=== PATIENT | female | born 1940 | race Asian ===

== ENCOUNTER 2020-06-23 17:18 | Inpatient (IN) | payer OTHER, MEDICAID, SELFPAY ==
[~2020-06-23] VITALS: Ht 165.1 cm; Wt 63.5 kg
[2020-06-23 17:19] VITALS: BP_SYST 134
[2020-06-23 18:32] LABS: BASOPHILS % (AUTO) 0.6 % (0.0-2.0); EOSINOPHILS % (AUTO) 0.6 % (0.0-4.0); HEMATOCRIT 22.9 % (36-48); HEMOGLOBIN 7.6 g/dL (12.0-16.0); LYMPHOCYTES # (AUTO) 0.6 K/uL (1.0-5.5); LYMPHOCYTES % (AUTO) 19.5 % (20.5-51.5); MEAN CORPUSCULAR HEMOGLOBIN 31 pg (27-31); MEAN CORPUSCULAR HGB CONC 33 % (32-36); MEAN CORPUSCULAR VOLUME 95 fL (79.0-98.0); MONOCYTES # (AUTO) 0.1 K/uL (0.0-1.0); MONOCYTES % (AUTO) 4.7 % (1.7-9.3); NEUTROPHILS # (AUTO) 2.3 K/uL (1.8-7.7); NEUTROPHILS % (AUTO) 74.6 % (40.0-70.0); PLATELET COUNT (AUTO) 117 K/uL (130-430); RED BLOOD CELL COUNT(AUTO) 2.41 MIL/uL (4.2-6.2); RED CELL DISTRIBUTION WIDTH 18.8 % (9.0-15.0); WHITE BLOOD COUNT (AUTO) 3.1 K/uL (4.8-10.8)
[2020-06-23 18:53] LABS: INR 0.9 (0.8-1.2); PROTHROMBIN TIME 9.4 SECS (9.5-12.5)
[2020-06-23 19:03] LABS: ANION GAP 5 (5-15); CALCIUM 7.8 mg/dL (8.4-11.0); CHLORIDE 115 mmol/L (98-107); CREATININE 0.39 mg/dL (0.55-1.30); SODIUM SERUM 154 mmol/L (136-145); UREA NITROGEN, BLOOD 19 mg/dL (8-21)
[2020-06-23 19:08] LABS: ALANINE AMINOTRANSFERASE 38 U/L (12-78); ALBUMIN 2.3 g/dL (3.4-4.8); ASPARTATE AMINOTRANSFERASE 41 U/L (10-37); TOTAL BILIRUBIN 0.8 mg/dL (0.0-1.0)
[2020-06-23 19:12] LABS: POTASSIUM 2.5 mmol/L (3.5-5.1)
[2020-06-23 19:15] LABS: GLUCOSE 161 mg/dL (70-99)
[2020-06-23] MEDS ORDERED: KCL 40 mEq in 100 mL (PREMIX) 100 ML IV ONE (19:30)
[2020-06-23] MEDS ORDERED: KCL 20 mEq in 100 mL (PREMIX) 100 ML IV ONE (19:30)
[2020-06-23 22:25] VITALS: BP_SYST 101
[2020-06-23] MEDS: D5/0.45 NS 1,000 ML IV SCH (23:30)
[2020-06-24 02:39] LABS: BILIRUBIN,URINE NEGATIVE (NEGATIVE); BLOOD, URINE 3+ (NEGATIVE); CLARITY/URINE CLOUDY (CLEAR); COLOR,URINE YELLOW (YELLOW); GLUCOSE,URINE NEGATIVE (NEGATIVE); KETONES,URINE NEGATIVE (NEGATIVE); LEUKOCYTE ESTERASE ,URINE 1+ (NEGATIVE); NITRITE, URINE NEGATIVE (NEGATIVE); PH,URINE 6.5 (5.0-8.0); PROTEIN URINE 2+ (NEGATIVE)
[2020-06-24 03:19] LABS: BACTERIA,URINE MODERATE /HPF (None Seen); RBC,URINE 20-50 /HPF (0-3)
[2020-06-24] MEDS ORDERED: ONDA4TAB5 PEG (07:07)
[2020-06-24] MEDS ORDERED: DOCU-144 PEG (07:07)
[2020-06-24] MEDS ORDERED: CHOL4PAC20 PEG (07:07)
[2020-06-24] MEDS ORDERED: LACT10SO6 PEG (07:07)
[2020-06-24] MEDS ORDERED: SSREG SUBCUT (07:07)
[2020-06-24] MEDS ORDERED: CAT.1 PEG (07:07)
[2020-06-24] MEDS ORDERED: LOVI30 SQ (07:07)
[2020-06-24] MEDS ORDERED: ASCO500T20 PEG (07:07)
[2020-06-24] MEDS ORDERED: LEVE250T2 PEG (07:07)
[2020-06-24] MEDS ORDERED: ALBU2.5V7 INH (07:07)
[2020-06-24] MEDS ORDERED: TYLL650 PEG (07:07)
[2020-06-24] MEDS ORDERED: GLU500 PEG (07:07)
[2020-06-24 07:13] LABS: ANION GAP 6 (5-15); CALCIUM 8.1 mg/dL (8.4-11.0); CHLORIDE 118 mmol/L (98-107); CREATININE 0.38 mg/dL (0.55-1.30); GLUCOSE 163 mg/dL (70-99); POTASSIUM 3.2 mmol/L (3.5-5.1); SODIUM SERUM 154 mmol/L (136-145); UREA NITROGEN, BLOOD 20 mg/dL (8-21)
[2020-06-24 07:19] LABS: ALANINE AMINOTRANSFERASE 33 U/L (12-78); ALBUMIN 2.1 g/dL (3.4-4.8); ASPARTATE AMINOTRANSFERASE 36 U/L (10-37); TOTAL BILIRUBIN 0.8 mg/dL (0.0-1.0)
[2020-06-24 07:29] LABS: BASOPHILS % (AUTO) 1.4 % (0.0-2.0); EOSINOPHILS % (AUTO) 0.9 % (0.0-4.0); HEMATOCRIT 22.1 % (36-48); HEMOGLOBIN 7.1 g/dL (12.0-16.0); LYMPHOCYTES # (AUTO) 0.4 K/uL (1.0-5.5); LYMPHOCYTES % (AUTO) 18.5 % (20.5-51.5); MEAN CORPUSCULAR HEMOGLOBIN 31 pg (27-31); MEAN CORPUSCULAR HGB CONC 32 % (32-36); MEAN CORPUSCULAR VOLUME 97 fL (79.0-98.0); MONOCYTES # (AUTO) 0.1 K/uL (0.0-1.0); MONOCYTES % (AUTO) 4.7 % (1.7-9.3); NEUTROPHILS # (AUTO) 1.7 K/uL (1.8-7.7); NEUTROPHILS % (AUTO) 74.5 % (40.0-70.0); PLATELET COUNT (AUTO) 104 K/uL (130-430); RED BLOOD CELL COUNT(AUTO) 2.27 MIL/uL (4.2-6.2); RED CELL DISTRIBUTION WIDTH 19.6 % (9.0-15.0); WHITE BLOOD COUNT (AUTO) 2.3 K/uL (4.8-10.8)
[2020-06-24 08:00] VITALS: BP_SYST 123
[2020-06-24] MEDS ORDERED: ALBUTEROL SULFATE 0.083% 2.5 MG/3 ML VIAL.NEB INH PRN (08:30)
[2020-06-24] MEDS ORDERED: cloNIDine HCL 0.1 MG TABLET GT SCH (08:30)
[2020-06-24] MEDS ORDERED: INSULIN REGULAR, HUMAN 100 UNITS/ML, 10 ML VIAL (humuLIN R) SUBCUT PRN ×2 (08:30→10:00)
[2020-06-24] MEDS ORDERED: ONDANSETRON 4 MG ODT TAB GT PRN (08:30)
[2020-06-24] MEDS ORDERED: cloNIDine HCL 0.1 MG TABLET PO PRN (08:45)
[2020-06-24 09:17] LABS: TOTAL IRON BIND. CAPACITY 231 ug/dL (250-450)
[2020-06-24] MEDS ORDERED: POTASSIUM CHLORIDE 20 MEQ/PKT PACKET PO ONE (09:45)
[2020-06-24] MEDS ORDERED: D5W 1,000 ML IV PRN (10:15)
[2020-06-24] MEDS ORDERED: DEXTROSE 50%-WATER 50 ML DISP.SYRIN IVP PRN (10:15)
[2020-06-24] MEDS ORDERED: GLUCOSE (DEXTROSE) ORAL GEL -Adults PO PRN (10:15)
[2020-06-24] MEDS: PANTOPRAZOLE SODIUM 40 MG/VIAL (PROTONIX) IVP SCH (10:25)
[2020-06-24] MEDS: DOCUSATE SODIUM 100 MG CAPSULE PO SCH ×2 (10:25→22:08)
[2020-06-24] MEDS: levETIRAcetam 500 MG TABLET GT SCH ×2 (10:25→22:08)
[2020-06-24] MEDS: ASCORBIC ACID 500 MG TABLET GT SCH ×2 (10:25→22:08)
[2020-06-24] MEDS: ENOXAPARIN SODIUM 30 MG/0.3 ML SYRINGE SQ SCH ×3 (10:26→22:09)
[2020-06-24] MEDS: CHOLESTYRAMINE/SUCROSE 4 GM/PACKET GT SCH ×3 (12:05→23:58)
[2020-06-24 12:49] VITALS: BP_SYST 107
[2020-06-24 13:09] VITALS: BP_SYST 107
[2020-06-24] MEDS: D5/0.45 NS 1,000 ML IV SCH ×2 (15:30→18:59)
[2020-06-24 16:40] VITALS: BP_SYST 109
[2020-06-24] MEDS: metFORMIN HCL 500 MG TABLET GT SCH (18:13)
[2020-06-24 20:00] VITALS: BP_SYST 102
[2020-06-25] MEDS: CHOLESTYRAMINE/SUCROSE 4 GM/PACKET GT SCH ×3 (05:56→17:22)
[2020-06-25 08:00] VITALS: BP_SYST 121
[2020-06-25] MEDS: metFORMIN HCL 500 MG TABLET GT SCH ×2 (08:00→17:22)
[2020-06-25 08:08] LABS: ANION GAP 9 (5-15); CALCIUM 8.1 mg/dL (8.4-11.0); CHLORIDE 118 mmol/L (98-107); CREATININE 0.31 mg/dL (0.55-1.30); GLUCOSE 122 mg/dL (70-99); POTASSIUM 3.6 mmol/L (3.5-5.1); SODIUM SERUM 154 mmol/L (136-145); UREA NITROGEN, BLOOD 16 mg/dL (8-21)
[2020-06-25] MEDS: ENOXAPARIN SODIUM 30 MG/0.3 ML SYRINGE SQ SCH ×2 (09:00→21:00)
[2020-06-25] MEDS: levETIRAcetam 500 MG TABLET GT SCH ×2 (09:52→22:06)
[2020-06-25] MEDS: DOCUSATE SODIUM 100 MG CAPSULE PO SCH ×2 (09:52→22:06)
[2020-06-25] MEDS: ASCORBIC ACID 500 MG TABLET GT SCH ×2 (09:52→22:06)
[2020-06-25] MEDS: PANTOPRAZOLE SODIUM 40 MG/VIAL (PROTONIX) IVP SCH (09:53)
[2020-06-25 09:54] LABS: MONOCYTES # (AUTO) 0.1 K/uL (0.0-1.0)
[2020-06-25] MEDS: levoFLOXacin 250 MG TABLET PO SCH (10:00)
[2020-06-25 10:06] LABS: BASOPHILS % (AUTO) 0.7 % (0.0-2.0); EOSINOPHILS # (AUTO) 0.1 K/uL (0.0-0.4); EOSINOPHILS % (AUTO) 1.9 % (0.0-4.0); HEMATOCRIT 26.6 % (36-48); HEMOGLOBIN 8.1 g/dL (12.0-16.0); LYMPHOCYTES # (AUTO) 0.7 K/uL (1.0-5.5); LYMPHOCYTES % (AUTO) 22.2 % (20.5-51.5); MEAN CORPUSCULAR HEMOGLOBIN 29 pg (27-31); MEAN CORPUSCULAR HGB CONC 30 % (32-36); MEAN CORPUSCULAR VOLUME 94 fL (79.0-98.0); MONOCYTES % (AUTO) 4.9 % (1.7-9.3); NEUTROPHILS # (AUTO) 2.1 K/uL (1.8-7.7); NEUTROPHILS % (AUTO) 70.3 % (40.0-70.0); PLATELET COUNT (AUTO) 92 K/uL (130-430); RED BLOOD CELL COUNT(AUTO) 2.84 MIL/uL (4.2-6.2); RED CELL DISTRIBUTION WIDTH 18.6 % (9.0-15.0)
[2020-06-25] MEDS ORDERED: MENTHOL/ZINC OXIDE 113 GM OINT. TP PRN (11:00)
[2020-06-25] MEDS: BALSAM PERU/CASTOR OIL 60 GM OINT...G. TP SCH (11:07)
[2020-06-25 12:35] VITALS: BP_SYST 100
[2020-06-25 17:00] VITALS: BP_SYST 93
[2020-06-25 20:00] VITALS: BP_SYST 106
[2020-06-25] MEDS: EMOLLIENT COMBINATION NO.73 78 GM CREAM..G. TP SCH (22:07)
[2020-06-26] MEDS: CHOLESTYRAMINE/SUCROSE 4 GM/PACKET GT SCH ×4 (00:59→17:30)
[2020-06-26 01:11] VITALS: BP_SYST 103
[2020-06-26] MEDS: D5/0.45 NS 1,000 ML IV SCH (07:30)
[2020-06-26 07:43] LABS: BASOPHILS % (AUTO) 0.5 % (0.0-2.0); EOSINOPHILS % (AUTO) 1.7 % (0.0-4.0); HEMATOCRIT 25.8 % (36-48); HEMOGLOBIN 8.5 g/dL (12.0-16.0); LYMPHOCYTES # (AUTO) 0.4 K/uL (1.0-5.5); LYMPHOCYTES % (AUTO) 16.9 % (20.5-51.5); MEAN CORPUSCULAR HEMOGLOBIN 31 pg (27-31); MEAN CORPUSCULAR HGB CONC 33 % (32-36); MEAN CORPUSCULAR VOLUME 95 fL (79.0-98.0); MONOCYTES # (AUTO) 0.1 K/uL (0.0-1.0); MONOCYTES % (AUTO) 4.2 % (1.7-9.3); NEUTROPHILS % (AUTO) 76.7 % (40.0-70.0); PLATELET COUNT (AUTO) 76 K/uL (130-430); RED BLOOD CELL COUNT(AUTO) 2.71 MIL/uL (4.2-6.2); RED CELL DISTRIBUTION WIDTH 18.9 % (9.0-15.0); WHITE BLOOD COUNT (AUTO) 2.6 K/uL (4.8-10.8)
[2020-06-26 08:00] VITALS: BP_SYST 117
[2020-06-26] MEDS: metFORMIN HCL 500 MG TABLET GT SCH ×2 (08:00→17:30)
[2020-06-26] MEDS: DOCUSATE SODIUM 100 MG CAPSULE PO SCH ×2 (10:14→21:00)
[2020-06-26] MEDS: EMOLLIENT COMBINATION NO.73 78 GM CREAM..G. TP SCH ×2 (10:14→21:52)
[2020-06-26] MEDS: levETIRAcetam 500 MG TABLET GT SCH ×2 (10:14→21:51)
[2020-06-26] MEDS: ASCORBIC ACID 500 MG TABLET GT SCH ×2 (10:14→21:51)
[2020-06-26] MEDS: PANTOPRAZOLE SODIUM 40 MG/VIAL (PROTONIX) IVP SCH (10:14)
[2020-06-26] MEDS: BALSAM PERU/CASTOR OIL 60 GM OINT...G. TP SCH (10:15)
[2020-06-26] MEDS: levoFLOXacin 250 MG TABLET PO SCH (10:15)
[2020-06-26 12:15] VITALS: BP_SYST 109
[2020-06-26] MEDS ORDERED: POTASSIUM CHLORIDE 20 MEQ/PKT PACKET PO ONE (16:15)
[2020-06-26 16:17] VITALS: BP_SYST 125
[2020-06-26 20:39] VITALS: BP_SYST 113
[2020-06-27] VITALS (7 sets, daily range): BP systolic 101–115
[2020-06-27] MEDS: CHOLESTYRAMINE/SUCROSE 4 GM/PACKET GT SCH ×5 (01:33→23:25)
[2020-06-27] MEDS: metFORMIN HCL 500 MG TABLET GT SCH ×2 (08:23→18:28)
[2020-06-27] MEDS: levETIRAcetam 500 MG TABLET GT SCH ×2 (08:23→21:02)
[2020-06-27] MEDS: DOCUSATE SODIUM 100 MG CAPSULE PO SCH ×2 (08:23→21:03)
[2020-06-27] MEDS: ASCORBIC ACID 500 MG TABLET GT SCH ×2 (08:23→21:02)
[2020-06-27] MEDS: PANTOPRAZOLE SODIUM 40 MG/VIAL (PROTONIX) IVP SCH (08:23)
[2020-06-27] MEDS: EMOLLIENT COMBINATION NO.73 78 GM CREAM..G. TP SCH ×2 (08:24→21:03)
[2020-06-27] MEDS: BALSAM PERU/CASTOR OIL 60 GM OINT...G. TP SCH (08:25)
[2020-06-27] MEDS: D5/0.45 NS 1,000 ML IV SCH ×2 (08:39→23:20)
[2020-06-27] MEDS: levoFLOXacin 250 MG TABLET PO SCH (10:00)
[2020-06-27 16:01] LABS: HEMATOCRIT 24.5 % (36-48); MEAN CORPUSCULAR HEMOGLOBIN 31 pg (27-31); MEAN CORPUSCULAR HGB CONC 33 % (32-36); MEAN CORPUSCULAR VOLUME 95 fL (79.0-98.0); RED BLOOD CELL COUNT(AUTO) 2.58 MIL/uL (4.2-6.2); RED CELL DISTRIBUTION WIDTH 20.8 % (9.0-15.0)
[2020-06-27 16:12] LABS: ANION GAP 8 (5-15); CHLORIDE 113 mmol/L (98-107); CREATININE 0.38 mg/dL (0.55-1.30); GLUCOSE 118 mg/dL (70-99); POTASSIUM 3.8 mmol/L (3.5-5.1); SODIUM SERUM 143 mmol/L (136-145)
[2020-06-27 16:20] LABS: UREA NITROGEN, BLOOD 15 mg/dL (8-21)
[2020-06-27 16:31] LABS: PLATELET COUNT (AUTO) 84 K/uL (130-430)
[2020-06-27 16:32] LABS: BAND % (MANUAL) 6 % (0-6); BASOPHILS % (MANUAL) 0 % (0-2); EOSINOPHILS % (MANUAL) 1 % (0-7); LYMPHOCYTES % (MANUAL) 15 % (20-46); MONOCYTES % (MANUAL) 4 % (0-11)
[2020-06-28 00:08] VITALS: BP_SYST 97
[2020-06-28] MEDS: CHOLESTYRAMINE/SUCROSE 4 GM/PACKET GT SCH ×2 (05:16→12:14)
[2020-06-28] MEDS: D5/0.45 NS 1,000 ML IV SCH (05:17)
[2020-06-28 07:14] LABS: BASOPHILS % (AUTO) 0.3 % (0.0-2.0); EOSINOPHILS % (AUTO) 0.7 % (0.0-4.0); HEMATOCRIT 24.8 % (36-48); HEMOGLOBIN 8.1 g/dL (12.0-16.0); LYMPHOCYTES # (AUTO) 0.5 K/uL (1.0-5.5); LYMPHOCYTES % (AUTO) 17.3 % (20.5-51.5); MEAN CORPUSCULAR HEMOGLOBIN 31 pg (27-31); MEAN CORPUSCULAR HGB CONC 33 % (32-36); MEAN CORPUSCULAR VOLUME 95 fL (79.0-98.0); MONOCYTES # (AUTO) 0.1 K/uL (0.0-1.0); MONOCYTES % (AUTO) 4.9 % (1.7-9.3); NEUTROPHILS # (AUTO) 2.3 K/uL (1.8-7.7); NEUTROPHILS % (AUTO) 76.8 % (40.0-70.0); PLATELET COUNT (AUTO) 92 K/uL (130-430); RED BLOOD CELL COUNT(AUTO) 2.62 MIL/uL (4.2-6.2); RED CELL DISTRIBUTION WIDTH 20.9 % (9.0-15.0)
[2020-06-28 08:00] VITALS: BP_SYST 116
[2020-06-28] MEDS: PANTOPRAZOLE SODIUM 40 MG/VIAL (PROTONIX) IVP SCH (08:29)
[2020-06-28] MEDS: metFORMIN HCL 500 MG TABLET GT SCH (08:30)
[2020-06-28] MEDS: levETIRAcetam 500 MG TABLET GT SCH (08:30)
[2020-06-28] MEDS: DOCUSATE SODIUM 100 MG CAPSULE PO SCH (08:30)
[2020-06-28] MEDS: ASCORBIC ACID 500 MG TABLET GT SCH (08:30)
[2020-06-28] MEDS: EMOLLIENT COMBINATION NO.73 78 GM CREAM..G. TP SCH (08:31)
[2020-06-28] MEDS: BALSAM PERU/CASTOR OIL 60 GM OINT...G. TP SCH (08:31)
[2020-06-28] MEDS: levoFLOXacin 250 MG TABLET PO SCH (10:34)
[2020-06-28 12:00] VITALS: BP_SYST 108
[2020-06-28 16:01] VITALS: BP_SYST 106
== END 2020-06-28 16:50 | DRG 811 ==
LOC: SED 17:18 → STU 19:30
PROVIDERS: ADMIT Internal Medicine; ATTEND Internal Medicine
PROC: 30233N1 Transfusion of Nonautologous Red Blood Cells into Peripheral Vein, Percutaneous Approach (ICD-10-PCS; principal; 2020-06-24)
DX: D46.9 Myelodysplastic syndrome, unspecified (principal); E43 Unspecified severe protein-calorie malnutrition; D61.818 Other pancytopenia; E87.1 Hypo-osmolality and hyponatremia; B37.49 Other urogenital candidiasis; E87.0 Hyperosmolality and hypernatremia; E87.6 Hypokalemia; E11.9 Type 2 diabetes mellitus without complications; R13.10 Dysphagia, unspecified; E86.0 Dehydration; F03.90 Unspecified dementia, unspecified severity, without behavioral disturbance, psychotic disturbance, mood disturbance, and anxiety; G40.909 Epilepsy, unspecified, not intractable, without status epilepticus; Z20.822 Contact with and (suspected) exposure to COVID-19; Z86.73 Personal history of transient ischemic attack (TIA), and cerebral infarction without residual deficits; Z74.01 Bed confinement status; Z93.1 Gastrostomy status
CPT/HCPCS: 36415; 71045; 76700-TC; 80048; 80053; 81000-TC; 82272; 82607; 82728; 82746; 82962; 83540-TC; 83550-TC; 83735-TC; 85007; 85025; 85027; 85610-TC; 85730-TC; 86886; 86900; 86901; 86920; 87081; 87086; 93005; 93970; C9113; G0378; J1650; J1815; J3480; P9021